=== PATIENT | female | born 1965 | race Caucasian/White ===

== ENCOUNTER 2019-07-04 18:51 | Emergency (ER) | payer BC, OTHER ==
[2019-07-04] MEDS ORDERED: NS 0.9% 1000 ML** 1,000 ML IV ONE (19:06)
--- NOTE | 2019-07-04 19:12 | ED ---
HPI Chest Pain - HPI Summary HPI Summary: 54 year old F presenting to [facility] via EMS with a chief complaint of chest "heaviness" since this afternoon onset while she was at work at [employer]. The patient rates the pain 7/10 in severity. Patient also reports shortness of breath and diaphoresis. Patient denies radiation of her chest heaviness to her jaw, neck, or arms bilaterally; cold symptoms; abdominal pain; or pain or swelling in her bilateral lower extremities. Symptoms aggravated by nothing. Symptoms slightly alleviated by nitroglycerin x1 and aspiring which were given by EMS. The patient has experienced similar symptoms previously but hasn't seen her primary care provider about the symptoms. She denies any previous history of DE, cardiac stents, diabetes, hypertension, PE, DVT. She has a history of a partial thyroidectomy. - History of Current Complaint Chief Complaint: EDChestPainROMI Time Seen by Provider: 07/04/19 18:56 Hx Obtained From: Patient Onset/Duration: Started Hours Ago, Still Present Timing: Constant Current Severity: Moderate Pain Intensity: 7 Pain Scale Used: 0-10 Numeric Chest Pain Location: Diffuse Chest Pain Radiates: No Character: Heaviness Aggravating Factor(s): Nothing Alleviating Factor(s): Medication - NTG x1 and aspirin Associated Signs and Symptoms: Positive: Negative - pain or swelling in bilateral lower extremities, Shortness of Breath, Diaphoresis. Negative: Abdominal Pain - Allergy/Home Medications Allergies/Adverse Reactions: Allergies Allergy/AdvReac Type Severity Reaction Status Date / Time No Known Allergies Allergy Verified 05/28/14 13:08 Home Medications: Home Medications Aspirin EC TAB* [Ecotrin EC Low Dose 81 MG*] 81 mg PO DAILY 01/05/19 [History Confirmed 07/04/19] Fexofenadine (NF) [Lady (NF)] 60 mg PO DAILY 01/05/19 [History Confirmed ] Naproxen Sodium [Aleve] 220 mg PO BID 01/05/19 [History Confirmed 07/04/19] PMH/Surg Hx/FS Hx/Imm Hx Endocrine/Hematology History: Reports: Hx Thyroid Disease - PARTIAL THYROIDECTOMY 2011 Denies: Hx Diabetes Cardiovascular History: Denies: Hx Hypertension, Hx Myocardial Infarction - Cancer History Hx Chemotherapy: No Hx Radiation Therapy: No - Surgical History Surgery Procedure, Year, and Place: HYSTERECTOMY, PARTIAL THYROIDECTOMY, BREAST BIOPSY, UTERINE ABLATION, TONSILLECTOMY, EARS TUBES - BILATERAL Infectious Disease History: No Infectious Disease History: Denies: Traveled Outside the [place] in Last 30 Days - Family History Known Family History: Positive: Other - breast CA - Social History Alcohol Use: Occasionally Substance Use Type: Reports: None Hx Tobacco Use: Yes Smoking Status (MU): Former Smoker Type: Cigarettes Have You Smoked in the Last Year: No Review of Systems Positive: Skin Diaphoresis Positive: Other - Chest "heaviness" Positive: Shortness Of Breath Negative: Abdominal Pain Musculoskeletal: Negative - pain or swelling in bilateral lower extremities All Other Systems Reviewed And Are Negative: Yes Physical Exam - Summary Physical Exam Summary: Constitutional: Well-developed, Well-nourished, Alert. (-) Distressed Skin: Warm, Dry HENT: Normocephalic; Atraumatic Eyes: Conjunctiva normal Neck: Musculoskeletal ROM normal neck. (-) JVD, (-) Stridor, (-) Tracheal deviation Cardio: Rhythm regular, rate normal, Heart sounds normal; Intact distal pulses; The pedal pulses are 2+ and symmetric. Radial pulses are 2+ and symmetric. (-) Murmur Pulmonary/Chest wall: Effort normal. (-) Respiratory distress, (-) Wheezes, (-) Rales Abd: Soft, (-) tenderness, (-) Distension, (-) Guarding, (-) Rebound Musculoskeletal: (-) Edema Lymph: (-) Cervical adenopathy Neuro: Alert, Oriented x3 Psych: Mood and affect Normal Triage Information Reviewed: Yes Vital Signs On Initial Exam: Initial Vitals Temp Pulse Resp BP Pulse Ox 97.7 F 76 17 144/73 96 07/04/19 18:53 07/04/19 18:53 07/04/19 18:53 07/04/19 18:53 07/04/19 18:53 Vital Signs Reviewed: Yes Procedures - Sedation Patient Received Moderate/Deep Sedation with Procedure: No Diagnostics - Vital Signs Vital Signs Temp Pulse Resp BP Pulse Ox 07/04/19 18:53 97.7 F 76 17 144/73 96 - Laboratory Result Diagrams: 07/04/19 19:13 07/04/19 19:13 Lab Statement: Any lab studies that have been ordered have been reviewed, and results considered in the medical decision making process. - Radiology chest x-ray Radiology Interpretation Completed By: ED Physician Summary of Radiographic Findings: No acute disease. Pending official report. - EKG 18:50 Cardiac Rate: NL - 76 BPM EKG Rhythm: Sinus Rhythm Summary of EKG Findings: No ischemic changes. ED physician has reviewed and interpreted this EKG. Chest Pain Course/Dx - Course Course Of Treatment: 54 year old F presenting via EMS with a chief complaint of chest "heaviness," shortness of breath, diaphoresis since this afternoon onset while she was at work at [employer]. Physical exam findings are unremarkable. An EKG reveals sinus rhythm with a rate of 76 BPM, no ischemic changes. CXR reveals, per ED physician, no acute disease. Test results with no significant abnormalities except for an MCH of 33 and BUN/creatinine ratio of 30.2. In the ED course, the patient was given nitroglycerin and normal saline. Patient received nitroglycerin with minimal change in symptomatology. Patient notes mother with history of A-fib and dad with a fatal DE at age 61. Patient having ongoing CP. Will discuss with hospitalist for admission. Spoke with Dr. Tariq, hospitalist, who will admit the patient. - Diagnoses Provider Diagnoses: Chest pain - Provider Notifications Discussed Care Of Patient With: Pedro Luis Tariq - Will admit the patient. Time Discussed With Above Provider: 21:05 Discharge ED - Sign-Out/Discharge Documenting (check all that apply): Patient Departure - Discharge Plan Condition: Stable Disposition: HOME Meds/Orders/Equipment: NUCLEAR CARDIAC STRESS TEST [NM] Time Frame: 1 Week, Facility: [facility], Location: CARDIAC SERVICES Patient Education Materials: Chest Pain (DC) Referrals: Karin Matos PA [Primary Care Provider] - 3 Days Additional Instructions: Follow up with your primary care provider in 2-3 days. Return to the emergency department for any new or worsening symptoms. - Billing Disposition and Condition Condition: STABLE Disposition: Home - Attestation Statements Document Initiated by Scribe: Yes Documenting Scribe: Sabra Bee Provider For Whom Scribe is Documenting (Include Credential): David Ayala DO Scribe Attestation: Stefania Watkins Tiffany Liu, scribed for David Ayala DO on 07/07 at 0749. Scribe Documentation Reviewed: Yes Provider Attestation: The documentation as recorded by the scribe, Sabra Bee accurately reflects the service I personally performed and the decisions made by me, David Ayala, Status of [place] Document: Viewed
--- OUTSIDE RECORDS SUMMARY | 2019-07-04 19:21 | XMS REPORT | Continuity of Care Document ---
:1965 External Reference #:[id number] Author Name Juanita Roberson PA Address [address] [place] [id number] Care Team Providers Name Role Phone Karin Matos RPAC - Medical Care Team Information Repairer Art Objects [phone] Glen Lowery MD - Otolaryngology Care Team Information Repairer Art Objects Problems Active Problems Provider Date Vitamin D deficiency Karin Matos RPAC Onset: 11/13/2014 Goiter Karin Matos RPAC Onset: 06/15/2016 Note: (L) hemithyroidectomy Non-toxic multinodular goiter Karin Matos RPAC Onset: 06/26/2016 Sensorineural hearing loss, bilateral Karin Matos RPAC Onset: 2016 Digestive symptom Alfredo Levy MD Onset: 06/11/2017 Hemorrhage of rectum and anus Alfredo Levy MD Onset: 06/11/2017 Pain in right lower limb Adams Quiles M.D. Onset: 06/29/2017 Benign neoplasm of colon Alfredo Levy MD Onset: 06/30/2017 First degree hemorrhoids Alfredo Levy MD Onset: 06/30/2017 Localized, primary osteoarthritis Juanita Roberson PA Onset: 06/05/2019 Contusion of knee Juanita Roberson PA Onset: 06/05/2019 Social History Type Date Description Comments Sex Unknown Tobacco Use Start: Unknown End: Former Cigarette Smoker x 30 yrs ago Unknown Smoking Status Reviewed: 06/05/19 Former Cigarette Smoker x 30 yrs ago Smokeless Tobacco Never Used Smokeless Tobacco ETOH Use Currently consumes alcohol socially Tobacco Use Start: Unknown Patient denies history of smoking Recreational Drug Use Denies Drug Use Allergies, Adverse Reactions, Alerts Description No Known Drug Allergies Medications Active Medications SIG Qnty Indications Ordering Provider Date Vitamin D3 Super 1 by mouth every Francis Mac, 06/23/2016 day M.D. 2000Unit Capsules Lady Allergy 1 tab by mouth Unknown 180mg every day Tablets Aleve 1 by mouth twice Unknown 220mg Capsules a day as needed Medications Administered in Office Medication SIG Qnty Indications Ordering Provider Date Depomedrol 40mg/1cc Juanita Roberson PA 06/05/2019 (methylprednisolone acetate) Injection Depomedrol 40mg/1cc Juanita Roberson PA 06/05/2019 (methylprednisolone acetate) Injection Immunizations CPT Code Status Date Vaccine Lot # [id number] Given 04/27/2018 Pneumovax Injection [id number] Vital Signs Date Vital Result Comment 06/05/2019 7:54am BP Systolic Sitting Left Arm 145 mmHg BP Diastolic Sitting Left Arm 77 mmHg Body Temperature 97.2 F Heart Rate 77 /min Height 60 inches 5'0" Weight 204.00 lb BMI (Body Mass Index) 39.8 kg/m2 BSA (Body Surface Area) 1.88 m2 [place] body weight in kilograms 45 kg 05/25/2019 1:11pm BP Systolic 166 mmHg BP Diastolic 86 mmHg Body Temperature 97.4 F Heart Rate 86 /min Respiratory Rate 18 /min Height 60 inches 5'0" Weight 204.00 lb BMI (Body Mass Index) 39.8 kg/m2 BSA (Body Surface Area) 1.88 m2 [place] body weight in kilograms 45 kg O2 % BldC Oximetry 98 % Results Description No Information Available Procedures Date Code Description Status 06/05/2019 55975 Radiology, Knee 3 Views Completed 06/05/2019 91925 Radiology, Knee 3 Views Completed 06/05/201975370 Asp./Injection major joint Completed 06/05/2019 Asp./Injection major joint Completed 04/13/2018 [id number] Mammogram Completed 06/15/2017 [id number] Colonoscopy Completed 02/26/2015 [id number] Colonoscopy Completed 11/29/2014 [id number] Mammogram Completed Medical Devices Description No Information Available Encounters Type Date Location Provider Dx Diagnosis Office Visit 06/05/2019 Orthopaedic Office Juanita Roberson, S80.02xA Contusion of 8:00a PA left knee, initial encounter M17.0 Bilateral primary osteoarthritis of knee M25.561 Pain in right knee M25.562 Pain in left knee Office Visit 05/25/2019 1:15p Walk In [facility] Shelley Robles, 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 Assessments Date Code Description Provider 06/05/2019 S80.02xA Contusion of left knee, initial encounter Juanita Roberson PA 06/05/2019 M17.0 Bilateral primary osteoarthritis of knee Juanita Roberson PA 06/05/2019 M25.561 Pain in right knee Juanita Roberson PA 06/05/2019 M25.562 Pain in left knee Juanita Roberson PA 05/25/2019 M25.562 Pain in left knee Shelley Robles FNP Plan of Treatment Future Appointment(s):07/17/2019 8:00 am - Juanita Roberson PA at [facility]/05/2019 - Juanita Roberson PAS80.02xA Contusion of left knee, initial [id number] Bilateral primary osteoarthritis of kneeComments:I explained that she does have arthritis within both knees. It seems as though she has acutely caused a flare due to the fall approximately 2 weeks ago. She is still having quite a bit of trouble, I recommended a course of physical therapy, oral [id number] can try different ones since theAleve seems to be helping minimally. She denies gastric, cardiac, or renal problems. I also offered a steroid injection which she was interested in. Verbal consent was obtained today for bilateral knee injections. Patient was injected today into each knee with 80 mg Depo-Medrol, 4 cc 2% lidocaine,and 2 cc of 0.25% Marcaine after sterile prep with chlorhexidine. Patient tolerated the injections well and was dressed with a Band-Aid. Patient will start a course of physical therapy. Patient willfollow up in 6 weeks.M25.561 Pain in right kneeM25.562 Pain in left knee Functional Status Description No Information Available Mental Status Description No Information Available Referrals Description No Information Available
--- OUTSIDE RECORDS SUMMARY | 2019-07-04 19:21 | XMS REPORT | Continuity of Care Document ---
:1965 External Reference #:[id number] Author Name Shelley Robles FNP (transmitted by agent of provider Johnathan Yoo) Address [address] [place] [address] Care Team Providers Name Role Phone Karin Matos RPAC - Medical Care Team Information Elevator Constructor Helper Glen Lowery MD - Otolaryngology Care Team Information Elevator Constructor Helper Problems Active Problems Provider Date Vitamin D [...] degree hemorrhoids Alfredo Levy MD Onset: 06/30/2017 Social History Type Date Description Comments Sex Unknown Tobacco Use Start: Unknown End: Former Cigarette Smoker x 30 yrs ago Unknown Smoking Status Reviewed: 05/25/19 Former Cigarette Smoker x 30 yrs ago Smokeless Tobacco Never Used Smokeless Tobacco ETOH Use Currently consumes alcohol socially Tobacco Use Start: Unknown Patient denies history of smoking Recreational Drug Use Denies Drug Use Allergies, Adverse Reactions, Alerts Description No Known Drug Allergies Medications Active Medications SIG Qnty Indications Ordering Provider Date Vitamin D3 Super 1 by mouth every Mac, Francis, 06/23/2016 Strength day M.D. 2000Unit Capsules Lady Allergy 1 tab by mouth Unknown 180mg every day Tablets Immunizations CPT Code Status Date Vaccine Lot # [id number] Given 04/27/2018 Pneumovax Injection [id number] Vital Signs Date Vital Result Comment 05/25/2019 1:11pm BP Systolic 166 mmHg BP Diastolic 86 mmHg Body Temperature 97.4 F Heart Rate 86 /min Respiratory Rate 18 /min Height 60 inches 5'0" Weight 204.00 lb BMI (Body Mass Index) 39.8 kg/m2 BSA (Body Surface Area) 1.88 m2 [place] body weight in kilograms 45 kg O2 % BldC Oximetry 98 % 04/27/2018 8:53am BP Systolic Sitting Left Arm 136 mmHg BP Diastolic Sitting Left Arm 84 mmHg Body Temperature 97.9 F Heart Rate 79 /min Respiratory Rate 18 /min Height 60 inches 5'0" Weight 204.00 lb BMI (Body Mass Index) 39.8 kg/m2 BSA (Body Surface Area) 1.88 m2 [place] body weight in kilograms 45 kg Results Description No Information Available Procedures Date Code Description Status 04/13/2018 [id number] Mammogram Completed 06/15/2017 [id number] Colonoscopy Completed 02/26/2015 [id number] Colonoscopy Completed 11/29/2014 [id number] Mammogram Completed Medical Devices Description No Information Available Encounters Type Date Location Provider Dx Diagnosis Office Visit 05/25/2019 Walk In Clinic Shelley Robles, M25.562 Pain in left knee 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 I do not feel any crepitus or abnormalities, so I do not feelthat you need an xray today.- Use ice 20 min on, 20 min off as needed for the next 24 hours.- Gentleexercise to keep moving the knee.- Elevate when at rest.- May use stew wrap if desired.- Use aleve oribuprofen as directed for pain.- Work note for tonight, return to work tomorrow. - If symptoms worsen , go to the ER or your PCP for further evaluation. Functional Status Description No Information Available Mental Status Description No Information Available Referrals Description No Information Available
--- OUTSIDE RECORDS SUMMARY | 2019-07-04 19:21 | XMS REPORT | Continuity of Care Document ---
:1965 External Reference #:[id number] Author Name DYLAN Mendez (transmitted by agent of provider Justina Barrzaa) Address [address] [place] [address] Care Team Providers Name Role Phone Karin Matos RPA - Medical Care Team Information Cut Off Saw Operator Pipe Blanks [phone] Problems Active Problems Provider Date Vitamin D deficiency DYLAN Mendez Onset: 12/26/2018 Goiter DYLAN Mendez Onset: 12/26/2018 Note: (L) nathanael-thyroidectomy Sensorineural hearing loss DYLAN Mendez Onset: 12/26/2018 Hemorrhoids DYLAN Mendez Onset: 12/26/2018 Heterogeneously dense breast composition DYLAN Mendez Onset: 2018 Family history of breast cancer DYLAN Mendez Onset: 12/23/2018 Note: mother Social History Type Date Description Comments Sex Unknown Tobacco Use Start: Unknown Quit ~1984 ETOH Use Occasionally consumes alcohol Tobacco Use Start: Unknown End: Patient is a former smoker Unknown Recreational Drug Use Denies Drug Use Smoking Status Reviewed: 06/01/19 Patient is a former smoker Exercise Type/Frequency Does not exercise Allergies, Adverse Reactions, Alerts Description No Known Drug Allergies Medications Active Medications SIG Qnty Indications Ordering Provider Date Aleve 1 tab twice a day [place] 06/01/2019 220mg Capsules as needed MD Freda Immunizations Description No Information Available Vital Signs Date Vital Result Comment 06/01/2019 2:04pm Height 60 inches 5'0" Weight 205.25 lb Heart Rate 80 /min BP Systolic Sitting 128 mmHg BP Diastolic Sitting 80 mmHg O2 % BldC Oximetry 99 % BMI (Body Mass Index) 40.1 kg/m2 09/22/2013 9:14am Height 60 inches 5'0" Weight 195.31 lb Heart Rate 68 /min BP Systolic 130 mmHg BP Diastolic 80 mmHg Respiratory Rate 16 /min Body Temperature 98.2 F BMI (Body Mass Index) 38.1 kg/m2 Results Description No Information Available Procedures Date Code Description Status 04/13/2018 [id number] Mammogram Completed 06/15/2017 [id number] Colonoscopy Completed 03/24/2017 [id number] Mammogram Completed 12/18/2015 [id number] Mammogram Completed Medical Devices Description No Information Available Encounters Description No Information Available Assessments Date Code Description Provider 06/01/2019 M25.569 Pain in unspecified knee DYLAN Mendez Plan of Treatment 06/01/2019 - RAISSA Mendez25.569 Pain in unspecified kneeReferral: Ange Cordero RPAC, Physician AssistantAllNew Medication:Aleve 220 mg - 1 tab twice a day as needed Functional Status Description No Information Available Mental Status Description No Information Available Referrals Refer to Dr Reason for Referral Status Appt Date Ange Cordero RPAC Bilateral knee pain, has not had xray Created [address] [place] [address] [phone]
[2019-07-04 19:24] LABS: ABS Basophils 0.1 10^3/ul (0-0.2); ABS Eosinophils 0.2 10^3/ul (0-0.6); ABS Lymphocytes 1.8 10^3/ul (1.0-4.8); ABS Monocytes 0.6 10^3/ul (0-0.8); ABS Neutrophils 5.7 10^3/ul (1.5-7.7); Eosinophil % 2.1 %; Hematocrit 37 % (35-47); Hemoglobin 13.1 g/dL (12.0-16.0); Lymphocyte % 21.8 %; Mean Corpuscular HGB Conc 35 g/dL (31-36); Mean Corpuscular Hemoglobin 33 pg (27-31); Mean Corpuscular Volume 93 fL (80-97); Mean Platelet Volume 8.9 fL (7.4-10.4); Platelet Count 228 10^3/uL (150-450); Red Blood Count 3.99 10^6 /uL (3.70-4.87); Red Cell Distribution Width 13 % (10-15); White Blood Count 8.4 10^3/uL (3.5-10.8)
[2019-07-04] MEDS: Nitroglycerin TAB 0.4 MG* 0.4 MG TAB SL ONE ×2 (19:34→20:34)
[2019-07-04 20:02] LABS: ALT 14 U/L (7-52); AST 15 U/L (13-39); Albumin 4.1 g/dL (3.2-5.2); Albumin/Globulin Ratio 1.5 (1-3); Alkaline Phosphatase 72 U/L (34-104); Anion Gap 7 mmol/L (2-11); BUN/Creatinine Ratio 30.2 (8-20); Blood Urea Nitrogen 19 mg/dL (6-24); CO2 Carbon Dioxide 27 mmol/L (22-32); Calcium 9.1 mg/dL (8.6-10.3); Chloride 105 mmol/L (101-111); EGFR African American 118.7 (>60); EGFR Non-African American 98.1 (>60); Globulin 2.7 g/dL (2-4); Glucose 95 mg/dL (70-100); Potassium 3.9 mmol/L (3.5-5.0); Sodium 139 mmol/L (135-145); Total Protein 6.8 g/dL (6.4-8.9)
[2019-07-04] MEDS ORDERED: Ondansetron INJ* 2 MG/ML VIAL IV ONE (21:01)
[2019-07-04] MEDS ORDERED: Morphine 4 MG/ML VIAL (1 ml) 4 MG/ML VIAL IV ONE (21:01)
[2019-07-04 21:10] LABS: TSH (Thyroid Stimulating Horm) 2.59 mcIU/mL (0.34-5.60)
[2019-07-04 21:55] LABS: C Reactive Protein < 1.00 mg/L (<8.01)
[2019-07-04 22:15] LABS: Influenza A Molecular Negative (Negative); Influenza B Molecular Negative (Negative)
[2019-07-04 22:39] LABS: Cholesterol 225 mg/dL; HDL Cholesterol 46.4 mg/dL; LDL Cholesterol 138 mg/dL; Triglycerides 202 mg/dL
[2019-07-04 23:52] VITALS: BP 139/72
--- NOTE | 2019-07-05 08:33 | CONS ---
CONSULTATION REPORT: DATE OF CONSULT: 07/04/19 - EMERGENCY DEPT CONSULTING PROVIDER: Pedro Luis Tariq MD REQUESTING PHYSICIAN: Dr. Ayala of emergency room. REASON FOR CONSULT: Evaluation for disposition of the patient with chest pressure. CHIEF COMPLAINT: Chest pressure, fatigue. HISTORY OF PRESENT ILLNESS: Amina June is a 54-year-old female with past medical history of obesity (BMI of 38.5), knee osteoarthritis with a recent cortisone injection, and remote 4-pack years of smoking history. She felt tired the night prior to consultation and slept until about 11 a.m. When she woke up, she felt rundown and her whole body ached. She felt some pressure in her chest and this persisted throughout the day at work, but did not seem exertional. She works at [employer], and colleagues checked her blood pressure and pulse and they were both reportedly high, though she cannot relate exactly how high these were. She presented to the [facility] Emergency Room for further evaluation. There, her initial troponin was 0.00, second was 0.01. Her EKG (there was no prior at baseline) showed some T-wave inversions in III and V1. She had a chest x-ray, formal read pending but no acute process per my read. D-dimer was checked and was negative. Influenza also checked and negative , CRP less than 1. She reported that she had a similar episode of symptoms back in 2011 when lived in [place] and she was admitted to the hospital and had extensive cardiac workup at that time including a stress test and an echocardiogram. They ultimately found that she had a thyroid nodule. She would have half of her thyroid removed and her symptoms resolved after that. Note her her thyroid studies included TSH of 2.59 here. LDL was 138, HDL 46, total cholesterol 225. A1c is 4.9. She was slightly hypertensive on occasion ( between systolics 139 to 161). She was referred to the hospitalist service for disposition with consideration for admission. PAST MEDICAL HISTORY: Obesity with BMI 38.5, knee osteoarthritis, partial thyroidectomy 2011. MEDICATIONS: Included: 1. Aspirin 81 mg daily. 2. Naproxen 220 mg p.o. b.i.d. 3. Lady 60 mg p.o. daily. ALLERGIES: No known drug allergies. FAMILY MEDICAL HISTORY: Mother of breast cancer at age 84. Father of [place] at age 61. She had 3 brothers and 2 sisters, 1 brother of brain cancer at age 47. SOCIAL HISTORY: The patient is a former smoker, quit in 1984 after 4 years at 1 pack per day. She occasionally drinks wine. No drug use. 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 She is a full code. Medical surrogate is her sister, Florecita Thompson. REVIEW OF SYSTEMS: A complete 14-point review of systems is negative except as per HPI. Denies any fevers, chills, nausea, vomiting, stomach pains, rashes, sick contacts. She did have headache and she did have some episode of heart racing. No orthopnea, no paroxysmal nocturnal dyspnea. She has intentionally lost weight in about 10 pounds via an exercise program since the last few months. PHYSICAL EXAM: General Appearance: No acute distress, sitting in hospital bed. Vital signs: Temperature 97.9; pulse 77; respiratory rate 12; satting 98% on room air; blood pressure initially 144/73, peaked at 160/62. HEENT: Normocephalic, atraumatic. Pupils equal, round, and reactive to light. Extraocular motions intact. No scleral icterus. Lungs: Clear to auscultation bilaterally with no wheezing, rales, or rhonchi. Cardiovascular: Regular rate and rhythm. No murmurs, rubs, or gallops. Abdomen: Soft, nontender, nondistended. Extremities: Warm, well perfused. No peripheral edema. Neuro: Cranial nerves II through XII grossly intact. Moving all extremities. DIAGNOSTIC STUDIES/LAB DATA: White count 8.4, hemoglobin 13.1, hematocrit 37, platelets 228. D-dimer less than 200. Sodium 139, potassium 3.9, chloride 105 , carbon dioxide 27, BUN 19, creatinine 0.63, glucose 95. A1c 4.9. Lactic acid 1.0. Calcium 9.1, magnesium 2.0. Total bili 0.4, AST 15, ALT 14, alk phos 72. Troponin 0.01, initial was 0.00. CRP less than 1. Albumin 4.1. LDL 138, HDL 46. TSH 2.58. Influenza A and B negative. Imaging: Chest x-ray, formal read pending, but per my read no acute cardiopulmonary process. ASSESSMENT AND PLAN: Amina June is a 54-year-old female with past medical history of obesity and osteoarthritis, presenting with episode of fatigue, muscle aches, and chest pressure with now 2 negative troponins and no acute ST changes on her EKG, negative D-dimer, normal chest x-ray. Her HEART score I calculated as 2 to 3 and we would recommend further outpatient evaluation with a possible stress test. Other considerations we would be do a trial of GI cocktail or nonsteroidal anti-inflammatory drugs for potential musculoskeletal pain. She did not have any evidence of arrhythmia on telemetry and does note one of her primary concerns was making sure she did not have atrial fibrillation. Thank you for this interesting consult. [id number]/[facility] #: [id number] BRAULIO
== END 2019-07-04 23:51 | disposition home or self-care (01) ==
LOC: ED 18:51
DX: R07.89 Other chest pain (principal); R06.02 Shortness of breath; R61 Generalized hyperhidrosis; E66.9 Obesity, unspecified; Z68.38 Body mass index [BMI] 38.0-38.9, adult; Z79.82 Long term (current) use of aspirin; Z79.899 Other long term (current) drug therapy; Z82.49 Family history of ischemic heart disease and other diseases of the circulatory system; Z87.891 Personal history of nicotine dependence
CPT/HCPCS: 36415; 71045; 80053; 80061; 83036; 83605; 83735; 84443; 84484; 85025; 85379; 86140; 93005; 96361; 96374; 96375; 99284; A9270-GY; J2270; J2405

== ENCOUNTER 2021-01-30 05:55 | Inpatient (IN) ==
[2021-01-30] MEDS ORDERED: Propofol 10 MG/ML 20 ML BTL ONE ×2 (06:54→09:45)
[2021-01-30] MEDS ORDERED: Lidocaine 2% PF 5 ML VIAL ONE (06:54)
[2021-01-30] MEDS ORDERED: Ketamine HCL 50 mg/ml 10 ml VIAL (500 MG) ONE (06:55)
[2021-01-30] MEDS ORDERED: Ropivacaine 5 MG/ML 20 ML VIAL 0.5% (100 MG) ONE (07:04)
[2021-01-30] MEDS ORDERED: Buffered Lidocaine 1% SYRIN 1 ml INTRADERM ONE ×4 (07:10→08:00)
[2021-01-30] MEDS ORDERED: ceFAZolin 2 GM in NS PREMIX 2 GM/100 ML BAG IVPB ONE (07:16)
[2021-01-30] MEDS ORDERED: ROPIVACAINE 5 MG/ML 30 ML BTL (0.5%) ONE ×2 (07:24→07:37)
[2021-01-30] MEDS ORDERED: Midazolam 2 mg/2 ml VIAL 1 mg/ml 2 ml VIAL (2 mg) ONE ×2 (07:25→08:52)
[2021-01-30] MEDS ORDERED: Dexamethasone IV 4 MG/ML VIAL 1 ml VIAL ONE (07:25)
[2021-01-30] MEDS ORDERED: fentaNYL 100 mcg/2 ml 50 MCG/ML VIAL ONE ×3 (07:25→11:00)
[2021-01-30 07:59] LABS: Rapid COVID-19 Molecular Undetected (Undetected)
[2021-01-30] MEDS ORDERED: Lactated Ringers 1000 ml BAG 1,000 ML IV SCH ×3 (08:00→09:00)
[2021-01-30] MEDS ORDERED: Ondansetron ODT 4 mg TAB 4 MG TAB PO PRN (08:19)
[2021-01-30] MEDS ORDERED: diPHENhydraMINE 25 mg TAB PO PRN (08:19)
[2021-01-30] MEDS ORDERED: Magnesium Hydroxide LIQ 30 ML UDC PO PRN (08:19)
[2021-01-30] MEDS ORDERED: Morphine 2 MG/ML SYRINGE IV PRN (08:19)
[2021-01-30] MEDS ORDERED: Ondansetron 4 mg VIAL 2 MG/ML 2 ml VIAL IV PRN ×2 (08:19→08:34)
[2021-01-30] MEDS ORDERED: Lactulose 30 ml UDC PO PRN (08:19)
[2021-01-30] MEDS ORDERED: diPHENhydraMINE IV 50 MG/ML 1 ml VIAL (BENADRYL) IV PRN ×2 (08:19→08:34)
[2021-01-30] MEDS ORDERED: Metoclopramide 5 MG/ML VIAL (10 mg) IV PRN (08:34)
[2021-01-30] MEDS ORDERED: HYDROcodone/ACETAMIN 5/325 mg TAB PO PRN (08:34)
[2021-01-30] MEDS ORDERED: HYDROmorphone 1 MG/1 ML SYRINGE IV PRN (08:34)
[2021-01-30] MEDS ORDERED: Naloxone 0.4 mg VIAL 0.4 mg/ml 1 ml VIAL IV PRN (08:34)
[2021-01-30] MEDS ORDERED: Phenylephrine 40 mcg/mL 10mL (400mcg) SYRINGE ONE (09:13)
[2021-01-30] MEDS: fentaNYL 100 mcg/2 ml 50 MCG/ML VIAL IV PRN ×2 (11:03→11:18)
[2021-01-30] MEDS: Vitamin THERAPEUTIC TAB PO SCH (13:02)
[2021-01-30] MEDS: Magnesium Hydroxide LIQ 30 ML UDC PO SCH ×2 (13:02→21:10)
[2021-01-30] MEDS: FEXOFENADINE 60 MG PO SCH (13:03)
[2021-01-30] MEDS: ceFAZolin 1 GM ADVAN 1 GM in NS 0.9% 50 ML 50 ML IVPB SCH (17:16)
[2021-01-31] MEDS: ceFAZolin 1 GM ADVAN 1 GM in NS 0.9% 50 ML 50 ML IVPB SCH ×2 (01:01→08:59)
[2021-01-31] MEDS ORDERED: Flu vaccine *QUAD* 2021-22* 0.5 ML SYRINGE IM ONE (09:00)
[2021-01-31] MEDS: Vitamin THERAPEUTIC TAB PO SCH (09:00)
[2021-01-31] MEDS: FEXOFENADINE 60 MG PO SCH (09:02)
[2021-01-31] MEDS: Magnesium Hydroxide LIQ 30 ML UDC PO SCH (10:01)
[2021-01-31 10:43] LABS: Hematocrit 33 % (35-47); Hemoglobin 11.6 g/dL (12.0-16.0); Mean Platelet Volume 8.7 fL (7.4-10.4); Platelet Count 232 10^3/uL (150-450)
[2021-01-31 11:18] LABS: Calcium 8.7 mg/dL (8.6-10.3); EGFR African American 104.7 (>60); EGFR Non-African American 86.6 (>60); Potassium 3.4 mmol/L (3.5-5.0)
[2021-01-31 12:27] VITALS: BP 138/61
== END 2021-01-31 14:23 | disposition home or self-care (01) | DRG 302 ==
LOC: AA 05:55 → SSU 08:19
PROVIDERS: ADMIT Orthopaedic Surgery Adult Reconstructive Orthopaedic Surgery; ATTEND Orthopaedic Surgery Adult Reconstructive Orthopaedic Surgery

== ENCOUNTER 2024-03-07 06:05 | Observation (INO) ==
[~2024-03-07 06:05] MED LIST: NS 0.45% 1000 ml BAG 1,000 ML IV SCH; Naloxone 0.4 mg VIAL 0.4 mg/ml 1 ml VIAL IV PRN
[2024-03-07 06:45] LABS: Rapid COVID-19 Molecular Undetected (Undetected)
[2024-03-07] MEDS ORDERED: ROPIVACAINE 5 MG/ML 30 ML BTL (0.5%) ONE ×2 (06:52→08:30)
[2024-03-07] MEDS ORDERED: Tranexamic Acid 1 GM/100ML BAG 2,000 MG/200 ML BAG IV ONE (07:29)
[2024-03-07] MEDS ORDERED: ceFAZolin 2 GM PREMIX 2 GM/50 ML BAG ONE (07:29)
[2024-03-07] MEDS ORDERED: Propofol 10 MG/ML 20 ML BTL ONE (07:36)
[2024-03-07] MEDS ORDERED: Propofol 0 MG/0 ML BTL ONE (07:36)
[2024-03-07] MEDS ORDERED: Bupivacaine 0.5% PF 10 ML SDV VIAL INJ ONE (07:36)
[2024-03-07] MEDS ORDERED: Lidocaine 2% PF 5 ML VIAL ONE (07:36)
[2024-03-07] MEDS ORDERED: fentaNYL 100 mcg/2 ml 50 MCG/ML VIAL ONE ×3 (07:36→12:11)
[2024-03-07] MEDS ORDERED: Ondansetron 4 mg VIAL 2 MG/ML 2 ml VIAL ONE (07:36)
[2024-03-07] MEDS ORDERED: Dexamethasone IV 4 MG/ML VIAL 1 ml VIAL ONE ×2 (07:36→08:30)
[2024-03-07] MEDS ORDERED: Midazolam 2 mg/2 ml VIAL 1 mg/ml 2 ml VIAL (2 mg) ONE ×2 (07:36→08:30)
[2024-03-07] MEDS ORDERED: Propofol 10 mg/ml 100 ML BTL 1,000 MG/100 ML BTL ONE (07:38)
[2024-03-07] MEDS ORDERED: Phenylephrine IV 10 MG/ML 1 ml VIAL ONE (07:41)
[2024-03-07] MEDS ORDERED: Magnesium Hydroxide LIQ 30 ML UDC PO PRN (10:23)
[2024-03-07] MEDS ORDERED: Morphine 2 MG/ML SYRINGE IV PRN (10:23)
[2024-03-07] MEDS ORDERED: Lactulose 30 ml UDC PO PRN (10:23)
[2024-03-07] MEDS ORDERED: Calcium Carb (TUMS) 500 mg CHEW TAB PO PRN (10:23)
[2024-03-07] MEDS ORDERED: Ondansetron ODT 4 mg TAB 4 MG TAB PO PRN (10:23)
[2024-03-07] MEDS: fentaNYL 100 mcg/2 ml 50 MCG/ML VIAL IV PRN (12:12)
[2024-03-07] MEDS: Lactated Ringers 1000 ml BAG 1,000 ML IV SCH ×2 (13:01)
[2024-03-07] MEDS: Acetaminophen IV 1 GM/100ML 1,000 MG/100 ML BAG IV ONE (13:02)
[2024-03-07] MEDS: Buffered Lidocaine 1% SYRIN 1 ml INTRADERM ONE (13:02)
[2024-03-07 16:24] VITALS: BP 156/72
[2024-03-07] MEDS: ceFAZolin 2 GM PREMIX 2 GM/50 ML BAG IV SCH (17:12)
[2024-03-07] MEDS ORDERED: Magnesium Hydroxide LIQ 30 ML UDC PO SCH (21:00)
[2024-03-08] MEDS ORDERED: Vitamin THERAPEUTIC TAB PO SCH (09:00)
== END 2024-03-07 18:10 | disposition home or self-care (01) ==
LOC: SSU 06:05 → OR 06:05
PROVIDERS: ADMIT Orthopaedic Surgery Adult Reconstructive Orthopaedic Surgery; ATTEND Orthopaedic Surgery Adult Reconstructive Orthopaedic Surgery